=== PATIENT | male | born 1960 | race Two or more races ===

== ENCOUNTER 2021-03-28 09:15 | Inpatient (IN) | payer MEDICAID, OTHER ==
[~2021-03-28] VITALS: Ht 185.4 cm; Wt 122.2 kg
[2021-03-28] MEDS ORDERED: KETOROLAC TROMETH 60MG/2ML VIAL IM ONE (09:30)
[2021-03-28] MEDS ORDERED: ASPirin 81 mg TAB PO ONE (09:45)
[2021-03-28 10:02] LABS: Basophils # (auto) 0 10 ^3/uL (0-0.2); Basophils % (auto) 0.3 % (0.0-2.0); Eosinophils # (auto) 0.2 10 ^3/uL (0-0.8); Hematocrit 33.8 % (41.0-53.0); Hemoglobin 11.1 g/dL (13.5-17.5); Lymphocytes # (auto) 0.8 10 ^3/uL (0.4-5.4); Lymphocytes % (auto) 5.3 % (10.0-50.0); Mean Corpuscular Hemoglobin 30.3 pg (28.0-32.0); Monocytes # (auto) 1.2 10 ^3/uL (0-1.3); Monocytes % (auto) 7.5 % (0.0-12.0); Neutrophils # (auto) 13.3 10 ^3/uL (1.6-8.6); Neutrophils % (auto) 85.9 % (37.0-80.0); Nucleated Red Blood Cells % 0.1 %; Red Blood Cells 3.67 10^6/uL (4.5-5.90); Red Cell Distribution Width 13.2 % (11.8-14.3); White Blood Cell 15.5 10^3/uL (4.4-10.8)
[2021-03-28 10:32] LABS: Albumin 1.9 g/dL (3.4-5.0); Calcium 8.2 mg/dL (8.5-10.1); Potassium 4.1 mmol/L (3.5-5.1)
[2021-03-28 10:38] LABS: BUN/Creatinine Ratio 26.9; Bilirubin, Total 0.6 mg/dL (0.2-1.0); Total Protein 6.1 g/dL (6.4-8.2)
[2021-03-28] MEDS ORDERED: HYDROcodone-ACET 5/325MG TAB PO PRN (11:45)
[2021-03-28] MEDS ORDERED: NITROGLYCERIN 0.4 MG SL TAB SL PRN (11:45)
[2021-03-28] MEDS ORDERED: MORPHINE SULFATE INJECTION 2 MG/ML SYRG IV PRN (11:45)
[2021-03-28] MEDS ORDERED: DOCUSATE SOD 100 MG CAP PO PRN (11:45)
[2021-03-28] MEDS ORDERED: ONDANSETRON HCL 4 MG/2 ML VIAL IV PRN (11:45)
[2021-03-28] MEDS ORDERED: ACETAMINOPHEN 325 MG TAB PO PRN (11:45)
[2021-03-28] MEDS ORDERED: MORPHINE SULFATE 4 MG/ML SYR/VIAL IV ONE (12:00)
[2021-03-28] MEDS ORDERED: ONDANSETRON HCL 4 MG/2 ML VIAL IV ONE (12:00)
[2021-03-28] MEDS: MORPHINE SULFATE 4 MG/ML SYR/VIAL IV PRN (15:07)
[2021-03-28] MEDS: ALBUTEROL SULF 2.5 MG/0.5ML(0.5%) NEB SOLN NEB PRN ×2 (16:09→23:12)
[2021-03-28] MEDS ORDERED: HYDROcodone-ACET 10/325MG TAB PO ONE (17:00)
[2021-03-28] MEDS ORDERED: MORP1TAB14 PO (19:13)
[2021-03-28] MEDS ORDERED: METH500T22 PO (19:13)
[2021-03-28] MEDS ORDERED: LOSA25TA38 PO (19:13)
[2021-03-28] MEDS ORDERED: NAP500T PO (19:13)
[2021-03-28] MEDS ORDERED: TRAZ100T3 PO (19:13)
[2021-03-28] MEDS ORDERED: LORA-622 PO (19:13)
[2021-03-28] MEDS ORDERED: LORazepam 2MG/ML-1ML VIAL IV PRN (20:15)
[2021-03-28] MEDS ORDERED: OXYC325T14 PO (20:19)
[2021-03-28] MEDS: CYCLOBENZAPRINE HCL 10 MG TAB PO SCH (22:26)
[2021-03-28] MEDS: MORPHINE SULF 30 mg ER tab PO SCH (22:27)
[2021-03-28] MEDS: ASCORBIC ACID 500 MG TAB PO SCH (22:27)
[2021-03-28] MEDS ORDERED: IPRATROPIUM BROM 0.5 MG/2.5ML INH SOL NEB PRN (23:15)
[2021-03-29] MEDS: MORPHINE SULFATE 4 MG/ML SYR/VIAL IV PRN (00:43)
[2021-03-29] MEDS: TEMAZEPAM 15 MG CAP PO PRN (01:05)
[2021-03-29 01:40] LABS: Urine Bacteria FEW /hpf (None Seen); Urine Blood Negative /uL (Negative); Urine Mucus FEW (None Seen); Urine Specific Gravity 1.028 (1.001-1.035); Urine WBC 5 /hpf (0 - 3)
[2021-03-29 01:50] LABS: Alcohol, Urine < 3.0 mg/dL (0-10); Amphetamine Screen, Urine NEGATIVE (NEGATIVE); Barbiturate Scree,Urine NEGATIVE (NEGATIVE); Benzodiazephine Screen, Urine NEGATIVE (NEGATIVE); Cannabinoid Screen, Urine NEGATIVE (NEGATIVE); Cocaine Screen, Urine NEGATIVE (NEGATIVE); Opiate Scree,Urine POSITIVE (NEGATIVE); Phencyclidine Screen, Urine NEGATIVE (NEGATIVE)
[2021-03-29 05:18] LABS: Basophils # (auto) 0.1 10 ^3/uL (0-0.2); Basophils % (auto) 0.5 % (0.0-2.0); Eosinophils # (auto) 0.1 10 ^3/uL (0-0.8); Eosinophils % (auto) 0.5 % (0.0-7.0); Hematocrit 35.8 % (41.0-53.0); Hemoglobin 11.7 g/dL (13.5-17.5); Lymphocytes # (auto) 0.7 10 ^3/uL (0.4-5.4); Lymphocytes % (auto) 3.8 % (10.0-50.0); Mean Corpuscular Hemoglobin 30.3 pg (28.0-32.0); Mean Corpuscular Hgb Conc. 32.6 g/dL (32.0-36.0); Monocytes # (auto) 1.3 10 ^3/uL (0-1.3); Monocytes % (auto) 7.1 % (0.0-12.0); Neutrophils # (auto) 16.2 10 ^3/uL (1.6-8.6); Neutrophils % (auto) 88.1 % (37.0-80.0); Red Blood Cells 3.85 10^6/uL (4.5-5.90); Red Cell Distribution Width 13.3 % (11.8-14.3); White Blood Cell 18.3 10^3/uL (4.4-10.8)
[2021-03-29 05:38] LABS: Albumin 1.8 g/dL (3.4-5.0); BUN/Creatinine Ratio 36.2; Calcium 8.3 mg/dL (8.5-10.1); Potassium 4.9 mmol/L (3.5-5.1)
[2021-03-29 05:41] LABS: Bilirubin, Total 0.6 mg/dL (0.2-1.0); Total Protein 5.6 g/dL (6.4-8.2)
[2021-03-29 09:00] VITALS: BP 152/90
[2021-03-29] MEDS ORDERED: methylPREDNISolone SOD SUCC 125 MG/2 ML VL IV ONE (09:45)
[2021-03-29] MEDS: MORPHINE SULF 30 mg ER tab PO SCH ×2 (10:17→21:23)
[2021-03-29] MEDS: CYCLOBENZAPRINE HCL 10 MG TAB PO SCH ×2 (10:17→21:23)
[2021-03-29] MEDS: ZINC SULFATE 220mg CAP or TAB PO SCH (10:17)
[2021-03-29] MEDS: MULTIPLE VITAMIN TAB PO SCH (10:17)
[2021-03-29] MEDS: ASCORBIC ACID 500 MG TAB PO SCH ×2 (10:17→21:23)
[2021-03-29] MEDS: ENOXAPARIN SOD 40 MG/0.4 ML SYRINGE SC SCH (10:18)
[2021-03-29 11:52] VITALS: BP 152/90
[2021-03-29 12:40] VITALS: BP 133/84
[2021-03-29] MEDS ORDERED: GADOTERATE MEG 10 MMOL/20ml INJ (0.5MMOL/ml) IV ONE (13:00)
[2021-03-29 17:00] VITALS: BP 149/9
[2021-03-29 21:53] VITALS: BP 131/73
[2021-03-30 04:45] VITALS: BP 151/88
[2021-03-30] MEDS: MORPHINE SULFATE 4 MG/ML SYR/VIAL IV PRN ×3 (05:40→18:44)
[2021-03-30 09:01] VITALS: BP 147/97
[2021-03-30] MEDS: ZINC SULFATE 220mg CAP or TAB PO SCH (10:10)
[2021-03-30] MEDS: CYCLOBENZAPRINE HCL 10 MG TAB PO SCH ×2 (10:10→21:02)
[2021-03-30] MEDS: ASCORBIC ACID 500 MG TAB PO SCH ×2 (10:11→21:02)
[2021-03-30] MEDS: MORPHINE SULF 30 mg ER tab PO SCH ×2 (10:11→21:03)
[2021-03-30] MEDS: ENOXAPARIN SOD 40 MG/0.4 ML SYRINGE SC SCH (10:11)
[2021-03-30] MEDS: MULTIPLE VITAMIN TAB PO SCH (10:11)
[2021-03-30 12:32] VITALS: BP 150/86
[2021-03-30] MEDS ORDERED: LIDOCAINE 5% TOPICAL PATCH TOP ONE (16:15)
[2021-03-30] MEDS ORDERED: methylPREDNISolone SOD SUCC 125 MG/2 ML VL IV ONE (16:15)
[2021-03-30 17:14] VITALS: BP 139/92
[2021-03-30] MEDS: TEMAZEPAM 15 MG CAP PO PRN (21:14)
[2021-03-30 22:00] VITALS: BP 135/87
[2021-03-31 05:00] VITALS: BP 127/85
[2021-03-31] MEDS: MORPHINE SULFATE 4 MG/ML SYR/VIAL IV PRN ×2 (08:25→12:35)
[2021-03-31 09:00] VITALS: BP 132/81
[2021-03-31] MEDS: MORPHINE SULF 30 mg ER tab PO SCH (10:00)
[2021-03-31] MEDS: ASCORBIC ACID 500 MG TAB PO SCH (10:00)
[2021-03-31] MEDS: ENOXAPARIN SOD 40 MG/0.4 ML SYRINGE SC SCH (10:00)
[2021-03-31] MEDS: ZINC SULFATE 220mg CAP or TAB PO SCH (10:00)
[2021-03-31] MEDS: CYCLOBENZAPRINE HCL 10 MG TAB PO SCH (10:00)
[2021-03-31] MEDS: MULTIPLE VITAMIN TAB PO SCH (10:00)
[2021-03-31] MEDS ORDERED: LIDOCAINE 5% TOPICAL PATCH TOP SCH (10:00)
[2021-03-31 12:35] VITALS: BP 132/69
== END 2021-03-31 14:10 | disposition home or self-care (01) | DRG 351 ==
LOC: ER 09:15 → EDBD 09:15 → TELE 11:43 → TELE-CENTR 18:39
PROVIDERS: ADMIT Internal Medicine; ATTEND Internal Medicine
DX: M19.90 Unspecified osteoarthritis, unspecified site (principal); J96.01 Acute respiratory failure with hypoxia; E43 Unspecified severe protein-calorie malnutrition; I50.9 Heart failure, unspecified; I11.0 Hypertensive heart disease with heart failure; M54.50 Low back pain, unspecified; D64.9 Anemia, unspecified; D72.829 Elevated white blood cell count, unspecified; E66.01 Morbid (severe) obesity due to excess calories; J44.9 Chronic obstructive pulmonary disease, unspecified; J98.11 Atelectasis; S33.5XXA Sprain of ligaments of lumbar spine, initial encounter; F17.200 Nicotine dependence, unspecified, uncomplicated; Z20.822 Contact with and (suspected) exposure to COVID-19; Z96.649 Presence of unspecified artificial hip joint; G89.4 Chronic pain syndrome; M79.18 Myalgia, other site; Z68.35 Body mass index [BMI] 35.0-35.9, adult; Z82.49 Family history of ischemic heart disease and other diseases of the circulatory system; Z71.3 Dietary counseling and surveillance; X58.XXXA Exposure to other specified factors, initial encounter; Y93.89 Activity, other specified; Y92.89 Other specified places as the place of occurrence of the external cause; Y99.8 Other external cause status
CPT/HCPCS: 36415; 71045; 72131; 72158; 73030; 80053; 80307; 81001; 82550; 84484; 85025; 87426; 93005; 93306; 94640; 96372; 96374; 96375; 97163; 99291; G0378; J1885; J2405